=== PATIENT | female | born 1990 | race Caucasian/White ===

== ENCOUNTER 2016-10-28 15:48 | Emergency (ER) | payer MEDICAID ==
[~2016-10-28 15:48] MED LIST: ABILIFY5 M1 PO; AMOXICILLIN875 M1 PO; AZITHROMYCIN IV; BACTRIM DS TABL1 TAB PO; BENTYL20 MG PO; CIPRO500 M2 PO; CLARITIN10 M4 PO; FLEXERIL10 MG PO; HYDROCODON-ACE1 EA16 PO; HYDROCODONE PO; IBUPROFEN200 M2 PO; IBUPROFEN200 MG PO; IBUPROFEN800 M1 PO; KEFLEX500 M1 PO; KEFLEX500 M2 PO; KEFLEX500 M4 PO; LEXAPRO10 M2 PO; LEXAPRO20 M2; LEXAPRO20 M2 PO; MACROBID 100 M100 M1 PO; MELOXICAM7.5 M1; MICONAZOLE 7100 MG VG; MICONAZOLE NITR30 G2 TP; MIRALAX17 G2 PO; NO HOME MEDS; NO MEDICATIONS; NORCO 10/3251 TAB PO; NORCO 5-325 TA1 EACH PO; NORCO 5/325 TAB1 TAB PO; NORCO 5/3251 TA2 PO; OMEPRAZOLE20 M3 PO; PEPCID20 MG PO; PERCOCET 5-3251 EACH PO; PRENATAL1 EACH PO; SEPTRA DS TABLE1 TAB PO; TRAMADOL HCL50 M2 PO; TRAZODONE HCL50 M1 PO; TYLENOL EXTRA500 M1 PO; WELLBUTRIN SR150 M2 PO; ZITHROMAX250MG Z-PAK PO; ZOFRAN ODT4 MG PO; ZOLOFT100 M1 PO
== END 2016-10-28 16:02 ==
LOC: EDMED 15:48
DX: S52.122A Displaced fracture of head of left radius, initial encounter for closed fracture (principal); F31.9 Bipolar disorder, unspecified; W01.0XXA Fall on same level from slipping, tripping and stumbling without subsequent striking against object, initial encounter; Y92.410 Unspecified street and highway as the place of occurrence of the external cause

== ENCOUNTER 2016-12-26 22:43 | Emergency (ER) | payer MEDICAID ==
[2016-12-26] MEDS ORDERED: AMOXICILLIN500 M1 PO (22:57)
[2016-12-27 00:03] LABS: ANION GAP 13 mmol/L (0-20); BLOOD UREA NITROGEN 8 mg/dl (6-24); CALCIUM 9.2 mg/dl (8.5-10.5); CARBON DIOXIDE-VENOUS 26 mmol/L (22-32); CHLORIDE 106 mmol/l (96-110); GLUCOSE 108 mg/dL (70-110); POTASSIUM 3.3 mmol/L (3.7-5.1); SODIUM 142 mmol/L (135-145); eGFR VALUE FOR BLACK >90 mL/Min
[2016-12-27] MEDS ORDERED: XANAX0.25 M1 PO (00:21)
== END 2016-12-27 00:26 ==
LOC: EDMED 22:43
PROVIDERS: Physician Assistant
DX: E87.6 Hypokalemia (principal); G25.81 Restless legs syndrome; F60.9 Personality disorder, unspecified; Z90.49 Acquired absence of other specified parts of digestive tract; Z79.899 Other long term (current) drug therapy

== ENCOUNTER 2017-01-03 19:30 | Emergency (ER) | payer MEDICAID ==
[~2017-01-03 19:30] MED LIST changes: +AMOXICILLIN500 M1 PO; +XANAX0.25 M1 PO
== END 2017-01-03 20:35 | disposition left against medical advice (07) ==
LOC: EDMED 19:30
DX: R07.89 Other chest pain (principal); G47.00 Insomnia, unspecified; F31.9 Bipolar disorder, unspecified; F41.9 Anxiety disorder, unspecified; Z79.899 Other long term (current) drug therapy